=== PATIENT | female | born 1935 | race Caucasian/White ===

== ENCOUNTER → 2017-07-07 | Outpatient (CLI) | payer MEDICARE, BC ==
[~2017-07-07] MED LIST: ATIVAN0.5 MG PO; CALCIUM 500 +1 EAC5 PO; FISH OIL 1,001000 M2 PO; FLAX SEED OIL1000 MG PO; IBRANCE75 MG PO; TUMS PO; VITAMIN E400 UNIT PO; [UNRECOGNIZED DRUG - OTHER]; [UNRECOGNIZED DRUG - OTHER]
--- NOTE | ~2017-07-07 | CNG ---
[address] [address] [place]ONG[place] REPORT PROCEDURE Name: OMERO SAMS Room: [facility] Boggs#: [id number] Admission: 07/07/17 Date of : 33 Discharge: Report #: [id number] Path Case #: [id number] PATHOLOGY REPORT DRAFT COLLECTION DATE: 07/07/2017 RECEIVED DATE: 07/08/2017 SPECIMEN(S) RECEIVED: A.Pleural fluid, Right
[2017-07-07 12:18] LABS: APTT 25.8 Seconds (25.0-31.3)
== END | disposition home or self-care (01) ==
LOC: M.LAB 11:25 → M.ULTRA 13:00
PROVIDERS: Internal Medicine Hematology & Oncology
DX: J90 Pleural effusion, not elsewhere classified (principal); Z79.01 Long term (current) use of anticoagulants

== ENCOUNTER 2017-07-21 15:19 | Emergency (ER) | payer MEDICARE, BC ==
[~2017-07-21] VITALS: Ht 165.1 cm; Wt 72.6 kg
[2017-07-21] MEDS ORDERED: IBRANCE75 MG PO (15:42)
[2017-07-21] MEDS ORDERED: FISH OIL 1,001000 M2 PO (15:42)
[2017-07-21] MEDS ORDERED: TUMS PO (15:42)
[2017-07-21] MEDS ORDERED: VITAMIN E400 UNIT PO (15:42)
[2017-07-21] MEDS ORDERED: FLAX SEED OIL1000 MG PO (15:42)
[2017-07-21 16:56] VITALS: BP 149/75
[2017-09-02] MEDS ORDERED: [UNRECOGNIZED DRUG - OTHER] (14:00)
[2017-09-02] MEDS ORDERED: CALCIUM 500 +1 EAC5 PO (14:02)
[2017-09-02] MEDS ORDERED: ATIVAN0.5 MG PO (14:02)
[2017-09-02] MEDS ORDERED: [UNRECOGNIZED DRUG - OTHER] (14:02)
== END 2017-07-21 16:58 | disposition home or self-care (01) ==
LOC: M.ERS 15:19
DX: S80.12XA Contusion of left lower leg, initial encounter (principal); M71.22 Synovial cyst of popliteal space [Baker], left knee; Z85.3 Personal history of malignant neoplasm of breast; X58.XXXA Exposure to other specified factors, initial encounter; Y93.89 Activity, other specified; Y92.89 Other specified places as the place of occurrence of the external cause; Y99.8 Other external cause status

== ENCOUNTER → 2017-07-28 | Outpatient (CLI) | payer MEDICARE, BC | END | disposition home or self-care (01) | LOC: M.ULTRA 09:44 → M.LAB 10:00 | DX: J98.11 Atelectasis (principal); J91.0 Malignant pleural effusion; Z87.09 Personal history of other diseases of the respiratory system; Z85.3 Personal history of malignant neoplasm of breast ==

== ENCOUNTER → 2017-09-05 | Outpatient (CLI) | payer MEDICARE, BC ==
[2017-09-05] VITALS (7 sets, daily range): BP systolic 113–151; BP diastolic 65–78
[~2017-09-05] VITALS: Ht 165.1 cm; Wt 64.4 kg
[2017-09-05 08:32] LABS: CALCIUM 9.2 mg/dL (8.5-10.1); CREATININE 0.6 mg/dL (0.6-1.3); POTASSIUM 3.6 mmol/L (3.5-5.1)
[2017-09-05 08:33] LABS: APTT 24.2 Seconds (25.0-31.3)
[2017-09-05 08:37] LABS: ALBUMIN 3.5 g/dL (3.4-5.0); TOTAL BILIRUBIN 0.4 mg/dL (<0.1-1.0); TOTAL PROTEIN 7.4 g/dL (6.4-8.2)
[2017-09-05 08:52] LABS: HEMOGLOBIN 12.6 gm/dL (12.0-15.0); MCH 34.4 pg (26.0-34.0); MCHC 33.3 g/dL (28.0-37.0); RBC 3.66 mil/uL (4.20-5.00); WBC 2.3 thou/uL (4.0-11.0)
[2017-09-05 08:58] LABS: HEMATOCRIT 37.8 % (37.0-47.0); MCV 103.2 fL (80.0-100.0); MPV 7.9 fl. (7.2-11.1); RDW-CV 17.7 % (10.5-14.5)
== END | disposition home or self-care (01) ==
LOC: M.INT 07:26 → M.ULTRA 13:00
PROVIDERS: Radiology Diagnostic Radiology
DX: Z45.2 Encounter for adjustment and management of vascular access device (principal); J91.0 Malignant pleural effusion; Z85.3 Personal history of malignant neoplasm of breast; Z98.890 Other specified postprocedural states; Z96.612 Presence of left artificial shoulder joint; Z87.891 Personal history of nicotine dependence; Z79.899 Other long term (current) drug therapy; Z79.01 Long term (current) use of anticoagulants